=== PATIENT | female | born 1970 | race Two or more races ===

== ENCOUNTER 2016-06-17 12:08 | Emergency (ER) | payer MEDICAID, OTHER ==
[~2016-06-17] VITALS: Ht 160 cm; Wt 77.1 kg
[2016-06-17] MEDS ORDERED: DULO20CA PO (12:36)
[2016-06-17 12:40] LABS: BASOPHILS # (AUTO) 0.1 /CMM (0.0-0.2); BASOPHILS % (AUTO) 0.7 % (0.0-2.0); EOSINOPHILS # (AUTO) 0.1 /CMM (0.0-0.7); EOSINOPHILS % (AUTO) 0.7 % (0.0-6.0); HEMATOCRIT 32 % (33-45); HEMOGLOBIN 10.3 g/dL (11.5-14.8); LYMPHOCYTES # (AUTO) 2.3 /CMM (0.8-4.8); LYMPHOCYTES % (AUTO) 23.5 % (20.0-44.0); MEAN CORPUSCULAR HEMOGLOBIN 22 PG (26.0-33.0); MEAN CORPUSCULAR HGB CONC 32 g/dl (31.0-36.0); MEAN CORPUSCULAR VOLUME 70 fL (82-100); MONOCYTES # (AUTO) 0.7 /CMM (0.1-1.30); MONOCYTES % (AUTO) 7.1 % (2.0-12.0); NEUTROPHILS # (AUTO) 6.6 /CMM (1.8-8.9); PLATELET COUNT (AUTO) 437 /CMM (150-450); RDW COEFFICIENT OF VARIATION 16.3 (11.5-15.0); RED BLOOD CELL COUNT(AUTO) 4.64 MIL/uL (4.0-5.2); WHITE BLOOD COUNT (AUTO) 9.8 K/uL (4.3-11.0)
[2016-06-17 12:49] LABS: CALCIUM, SERUM 8.7 mg/dL (8.5-10.1); CARBON DIOXIDE 24 mmol/L (21-32); CHLORIDE 107 mmol/L (98-107); CREATININE 0.8 mg/dL (0.6-1.3); GFR 78 mL/min (>60); GLUCOSE 129 mg/dL (74-106); POTASSIUM 3.6 mmol/L (3.5-5.1); SODIUM SERUM 139 mmol/L (136-145); UREA NITROGEN, BLOOD 11 mg/dL (7-18)
[2016-06-17 12:58] LABS: APPEARANCE,URINE Clear (CLEAR); BILIRUBIN,URINE Negative (NEGATIVE); BLOOD, URINE Trace-intact Ery/uL (NEGATIVE); COLOR,URINE Yellow (YELLOW); KETONES,URINE Trace (NEGATIVE); LEUKOCYTE ESTERASE ,URINE Negative (NEGATIVE); NITRITE, URINE Negative (NEGATIVE); PH,URINE 5.5 (5.0-8.0); PROTEIN,URINE 30 mg/dl (NEGATIVE); UGLUCOSE Negative (NEGATIVE); UROBILINOGEN,URINE 0.2 EU/dL (0.2)
[2016-06-17] MEDS ORDERED: LORAZEPAM 1 MG TABLET PO ONE (13:00)
--- NOTE | 2016-06-17 13:00 | NUR ---
PT BIB [facility] FOR PSYCH EVAL. PT TOLD HER COUSIN SHE WANTED HELP D/T WANTING TO "HURT" HERSELF. DENIES HI. NOTED WITH ABRASIONS TO THE L WRIST WHICH THE PT DOES NOT REMEMBER CAUSING. PLACED ON 1 POINT RESTRAINT FOR SAFETY. NAD NOTED. NO PHYSICAL COMPLAINTS. COMPLIANT WITH STAFF INSTRUCTION.
[2016-06-17 13:01] LABS: PREGNANCY TEST URINE QUAL NEGATIVE (NEGATIVE)
[2016-06-17 13:02] LABS: ALANINE AMINOTRANSFERASE 33 U/L (12-78); ALBUMIN 3.5 g/dL (3.4-5.0); ALCOHOL, BLOOD < 3 mg/dL (0-0); ALKALINE PHOSPHATASE 165 U/L (46-116); ASPARTATE AMINOTRANSFERASE 30 U/L (15-37); BILIRUBIN,TOTAL 0.2 mg/dL (0.2-1.0); TOTAL PROTEIN, SERUM 7.6 g/dL (6.4-8.2)
[2016-06-17 13:05] LABS: ACETAMINOPHEN 0 ug/ml (10-30); SALICYLATE 0.9 mg/dL (2.8-20.0)
[2016-06-17 13:07] LABS: ADD URINE CULTURE NO; BACTERIA,URINE Few /HPF (None Seen); CANNABINOID, URINE NEGATIVE (NEGATIVE); MUCUS,URINE Few /LPF (None Seen); PHENCYCLIDINE SCREEN,URINE NEGATIVE (NEGATIVE); SQUAMOUS EPITHELIAL CELL,UR Few /HPF (None Seen); WBC,URINE 0-3 /HPF (0-3)
[2016-06-17 13:08] LABS: URINE AMORPHOUS URATE Rare /HPF (None Seen)
[2016-06-17 13:11] LABS: ANISOCYTOSIS 2+; BAND % (MANUAL) 1 % (0.0-5.0); EOSINOPHILS % (MANUAL) 2 % (0-4); HYPOCHROMASIA 1+; LYMPHOCYTES % (MANUAL) 25 % (16-48); MONOCYTES % (MANUAL) 8 % (0-11.0); NEUTROPHILS % (MANUAL) 64 (42-76); PLATELET ESTIMATE INCREASED
--- NOTE | 2016-06-17 14:34 | NUR ---
PATIENT'S BROTHER MIKEY [phone], PATIENT'S SISTER IN LAW ANTHONY JONES
[2016-06-17] MEDS ORDERED: LORAZEPAM 1 MG TABLET ONE (14:44)
--- NOTE | 2016-06-17 15:11 | NUR ---
NOW C/O HEADACHE. PA NOTIFIED.
[2016-06-17] MEDS ORDERED: ACETAMINOPHEN ES 500 MG TABLET ONE (15:12)
--- NOTE | 2016-06-17 15:12 | NUR ---
CALLED [facility] FOR TRANSPORTATION GOING TO [facility] ETA [id number]
[2016-06-17] MEDS ORDERED: ACETAMINOPHEN 325 MG TABLET PO ONE (15:30)
[2016-06-17 15:41] VITALS: BP 143/87
--- NOTE | 2016-06-17 15:49 | NUR ---
PER COLLINS, PSYCH CLINICIAN, SHE GAVE RN TO RN REPORT.
--- NOTE | 2016-06-17 15:49 | NUR ---
RESTING QUIETLY, NAD NOTED. VSS.
--- NOTE | 2016-06-17 16:07 | NUR ---
REPORT GIVEN TO [facility] FOR TRANSFER OF PT TO [facility]
== END 2016-06-17 16:17 ==
LOC: ER 12:11
DX: D64.9 Anemia, unspecified (principal); R74.8 Abnormal levels of other serum enzymes; R51 Headache; F43.9 Reaction to severe stress, unspecified
CPT/HCPCS: 36415; 80048; 80076; 80305; 80329; 81001; 84703; 85025; 99285; A4606; G0480 ×2; Z7610; 81000-TC; G6039-TC